=== PATIENT | female | born 1945 | race Caucasian/White ===

== ENCOUNTER 2016-09-20 10:10 | Emergency (ER) | payer MEDICARE, BC ==
[~2016-09-20] VITALS: Ht 160 cm; Wt 65.9 kg
[~2016-09-20 10:10] MED LIST: ACYCLOVIR200 MG PO; ANTIDEPRESSANT; BRINTELLIX10; CARAFATE 1GM1 G PO; CARAFATE S1 GM/10 ML PO; CLORAZEPATE; COLACE 100100 MG/CAP PO; COMPLETE SENIOR1 TA1 PO; CYMBALTA; HYDROCODONE BIT1 TA3 PO; INDOMETHACIN PO; KAPIDEX30 MG PO; KEFLEX500 MG PO; KLONOPIN 1MG1 MG PO; LAMICTAL 25MG T25 MG PO; LEVSIN 0.10.125 MG/T PO; MIRALAX PA17 GM/Dose PO; MOBIC15 MG PO; NATURAL E400 IU PO; NEURONTIN300 MG/CAP PO; NEXIUM 40MG40 MG PO; NITROSTAT0.4 MG/TAB SL; NORCO 325 MG-51 TAB; NORCO 325 MG-51 TAB PO; OMNICEF 300MG300 MG PO; PERCOCET 325 MG1 TA2 PO; PREDNISONE20 MG; PRIL40 PO; PRILOSEC 20MG20 MG PO; PROBIOTIC FORMU1 CAP PO; PROBIOTICA100 Milli1 PO; PYRIDIUM200 M1 PO; REGLAN 10MG10 MG/TAB PO; TEGRETOL 2200 MG/TA1 PO; TRANXENE PO; TYLENOL 8 HR PO; ULTRAM 50MG TAB50 MG PO; VALTREX 50500 MG/TAB PO; VALTREX1 GM PO; VITAMIN B12100 MCG PO; VITAMIN C500 MG PO; ZOLOFT 100MG100 MG PO; ZOLOFT50 MG PO; ZOVIRAX400 MG PO
[2016-09-20 10:13] VITALS: TEMP 98.4
[2016-09-20] MEDS ORDERED: ULTRAM 50MG TAB50 MG PO (10:43)
[2016-09-20 11:05] LABS: BASO % 0.4 % (0.0-2.0); EOS # 0.1 (0.0-0.7); EOS % 1.6 % (0-4.0); GRAN # 3.7 (1.4-6.5); GRAN % 54.9 % (42.2-75.2); HEMATOCRIT 41.3 % (37.0-47.0); HEMOGLOBIN 14.2 g/dl (12.5-16.0); LYMPH # 2.5 (1.2-3.4); LYMPH % 36.2 % (20.0-51.0); MEAN CELL VOLUME 92 fl (80.0-100.0); MEAN CORPUSCULAR HEMOGLOBIN 32 pg (27.0-31.0); MEAN CORPUSCULAR HGB CONC 34 g/dl (33.0-37.0); MEAN PLATELET VOLUME 8.9 fl (7.4-10.4); MONO # 0.5 (0.1-0.6); MONO % 6.6 % (1.7-9.3); PLATELET COUNT 292 K/mm3 (130-400); RED BLOOD COUNT 4.49 M/mm3 (4.10-5.30); REDCELL DISTRIBUTION WIDTH-CV 12.1 % (11.5-14.5); WHITE BLOOD COUNT 6.8 K/mm3 (4.8-10.8)
[2016-09-20 11:23] LABS: ADJUSTED CALCIUM 8.9 mg/dL (8.4-10.2); ALANINE AMINOTRANSFERASE 50 U/L (9-52); ALBUMIN 4.5 gm/dL (3.5-5.0); ALKALINE PHOSPHATASE 85 U/L (50-136); ANION GAP 13 mmol/L (7-16); BILIRUBIN,TOTAL 0.8 mg/dL (0.0-1.0); BLOOD UREA NITROGEN 13 mg/dL (7-17); CALCIUM 9.3 mg/dL (8.4-10.2); CARBON DIOXIDE 23 mmol/L (22-30); CHLORIDE 104 mmol/L (98-107); CREATININE, serum 0.63 mg/dL (0.52-1.25); GLUCOSE 87 mg/dL (74-106); LIPASE 212 U/L (23-300); POTASSIUM 3.9 mmol/L (3.4-5.0); SODIUM 141 mmol/L (137-145); TOTAL PROTEIN 7.5 gm/dL (6.4-8.2)
[2016-09-20 11:25] LABS: C-REACTIVE PROTEIN < 0.5 mg/dL (0.0-0.9)
[2016-09-20 12:18] VITALS: BP 132/80; PULSE 80
== END 2016-09-20 12:19 | disposition home or self-care (01) ==
LOC: COL.ER 10:10
PROVIDERS: Emergency Medicine
DX: R10.84 Generalized abdominal pain (principal)
CPT/HCPCS: J1170; J1885

== ENCOUNTER → 2017-01-02 | Outpatient (CLI) | payer MEDICARE, BC | LOC: MC.RAD 11:27 | DX: Z12.31 Encounter for screening mammogram for malignant neoplasm of breast (principal) ==

== ENCOUNTER → 2017-07-15 | Outpatient (CLI) | payer MEDICARE, BC | LOC: BHSO 14:34 | DX: F33.1 Major depressive disorder, recurrent, moderate (principal) ==

== ENCOUNTER → 2017-09-04 | Outpatient (CLI) | payer MEDICARE, BC | LOC: BHSO 14:38 | DX: F33.1 Major depressive disorder, recurrent, moderate (principal) | CPT/HCPCS: G0463 ==

== ENCOUNTER 2017-10-01 15:33 | Emergency (ER) | payer MEDICARE, BC ==
[~2017-10-01] VITALS: Ht 160 cm; Wt 68.2 kg
[2017-10-01 15:38] VITALS: TEMP 98.8
[2017-10-01] MEDS ORDERED: CYMBALTA 30MG30 MG PO (16:17)
[2017-10-01] MEDS ORDERED: NEURONTIN100 MG/CAP PO (16:18)
[2017-10-01 16:28] LABS: BASO # 0.1 (0.0-0.2); BASO % 0.7 % (0.0-2.0); EOS # 0.1 (0.0-0.7); EOS % 1.5 % (0-4.0); GRAN # 4.8 (1.4-6.5); HEMATOCRIT 44.3 % (37.0-47.0); HEMOGLOBIN 15.1 g/dl (12.5-16.0); LYMPH # 3.1 (1.2-3.4); LYMPH % 35.3 % (20.0-51.0); MEAN CELL VOLUME 96 fl (80.0-100.0); MEAN CORPUSCULAR HEMOGLOBIN 33 pg (27.0-31.0); MEAN CORPUSCULAR HGB CONC 34 g/dl (33.0-37.0); MEAN PLATELET VOLUME 8.5 fl (7.4-10.4); MONO # 0.6 (0.1-0.6); MONO % 7.2 % (1.7-9.3); PLATELET COUNT 348 K/mm3 (130-400); RED BLOOD COUNT 4.64 M/mm3 (4.10-5.30); REDCELL DISTRIBUTION WIDTH-CV 12.9 % (11.5-14.5)
[2017-10-01 16:35] LABS: ALANINE AMINOTRANSFERASE 46 U/L (9-52); ALKALINE PHOSPHATASE 81 U/L (50-136); ANION GAP 11 mmol/L (7-16); AST,SGOT 31 U/L (15-37); BILIRUBIN,TOTAL 0.4 mg/dL (0.0-1.0); BLOOD UREA NITROGEN 9 mg/dL (7-17); CALCIUM 9.8 mg/dL (8.4-10.2); CARBON DIOXIDE 26 mmol/L (22-30); CHLORIDE 101 mmol/L (98-107); CREATININE, serum 0.64 mg/dL (0.52-1.25); GLUCOSE 91 mg/dL (74-106); POTASSIUM 4.1 mmol/L (3.4-5.0); SODIUM 138 mmol/L (137-145); TOTAL PROTEIN 7.9 gm/dL (6.4-8.2)
[2017-10-01 16:36] LABS: ACETAMINOPHEN < 10 ug/mL (10-30); ALCOHOL(ethanol),MEDICAL < 10 mg/dL; SALICYLATE < 1.0 mg/dL
[2017-10-01 16:41] LABS: COLLECTION METHOD CLEAN CATCH
[2017-10-01 16:49] LABS: PH 7 (5-8); SQUAMOUS EPITHELIAL None Seen /hpf; URINE APPEARANCE Clear; URINE BACTERIA None Seen /hpf; URINE BILIRUBIN Negative (NEGATIVE); URINE BLOOD Negative (NEGATIVE); URINE COLOR Straw; URINE GLUCOSE Negative (NEGATIVE); URINE KETONE Negative (NEGATIVE); URINE LEUKOCYTE ESTERASE Negative (NEGATIVE); URINE NITRATE Negative (NEGATIVE); URINE PROTEIN(semi-quant) Negative (NEGATIVE); URINE RBC None Seen /hpf; URINE UROBILINOGEN Negative (NEGATIVE)
[2017-10-01 16:58] LABS: TRICYCLIC ANTIDEPRESS URINE NEGATIVE
[2017-10-01 23:50] VITALS: BP 105/68; PULSE 72
== END 2017-10-01 23:50 ==
LOC: COL.ER 15:33
PROVIDERS: Emergency Medicine
DX: F32.9 Major depressive disorder, single episode, unspecified (principal); R45.851 Suicidal ideations; K58.9 Irritable bowel syndrome, unspecified

== ENCOUNTER → 2017-10-09 | Outpatient (CLI) | payer MEDICARE, BC ==
[~2017-10-09] MED LIST changes: +CYMBALTA 30MG30 MG PO; +NEURONTIN100 MG/CAP PO
== END ==
LOC: COL.RAD 12:11
DX: R25.1 Tremor, unspecified (principal)

== ENCOUNTER 2017-10-21 12:52 | Outpatient (RCR) | payer MEDICARE, BC ==
[2018-01-18] MEDS ORDERED: AMITIZA24 MCG PO (18:55)
[2018-01-18] MEDS ORDERED: REMERON SOLTAB15 MG PO (18:56)
[2018-01-18] MEDS ORDERED: MYSOLINE 5050 MG/TAB PO (18:56)
== END 2018-01-19 | disposition home or self-care (01) ==
LOC: WSST
DX: R13.10 Dysphagia, unspecified (principal)
CPT/HCPCS: G8996-GN; G8997-GN

== ENCOUNTER 2018-01-18 18:28 | Emergency (ER) | payer MEDICARE, BC ==
[~2018-01-18] VITALS: Ht 160 cm; Wt 68.2 kg
[2018-01-18 18:34] VITALS: TEMP 98.2
[2018-01-18] MEDS ORDERED: AMITIZA24 MCG PO (18:55)
[2018-01-18] MEDS ORDERED: REMERON SOLTAB15 MG PO (18:56)
[2018-01-18] MEDS ORDERED: MYSOLINE 5050 MG/TAB PO (18:56)
[2018-01-18 19:37] LABS: COLLECTION METHOD CLEAN CATCH
[2018-01-18 19:40] LABS: BASO % 0.5 % (0.0-2.0); EOS # 0.1 (0.0-0.7); EOS % 1.6 % (0-4.0); GRAN # 3.8 (1.4-6.5); GRAN % 50.1 % (42.2-75.2); HEMATOCRIT 40.9 % (37.0-47.0); LYMPH % 39.4 % (20.0-51.0); MEAN CELL VOLUME 91 fl (80.0-100.0); MEAN CORPUSCULAR HEMOGLOBIN 31 pg (27.0-31.0); MEAN CORPUSCULAR HGB CONC 34 g/dl (33.0-37.0); MEAN PLATELET VOLUME 8.7 fl (7.4-10.4); MONO # 0.6 (0.1-0.6); PLATELET COUNT 307 K/mm3 (130-400); RED BLOOD COUNT 4.48 M/mm3 (4.10-5.30); REDCELL DISTRIBUTION WIDTH-CV 12.3 % (11.5-14.5)
[2018-01-18 19:46] LABS: MUCOUS Present /lpf; PH 5 (5-8); SQUAMOUS EPITHELIAL 0-2 /hpf; URINE APPEARANCE Clear; URINE BACTERIA None Seen /hpf; URINE BILIRUBIN Negative (NEGATIVE); URINE BLOOD 1+ (NEGATIVE); URINE COLOR Yellow; URINE GLUCOSE Negative (NEGATIVE); URINE KETONE Negative (NEGATIVE); URINE LEUKOCYTE ESTERASE Negative (NEGATIVE); URINE NITRATE Negative (NEGATIVE); URINE PROTEIN(semi-quant) Negative (NEGATIVE); URINE RBC 0-2 /hpf; URINE UROBILINOGEN Negative (NEGATIVE)
[2018-01-18 19:52] LABS: BLOOD UREA NITROGEN 11 mg/dL (7-17)
[2018-01-18 19:54] LABS: ALANINE AMINOTRANSFERASE 37 U/L (9-52); ALBUMIN 4.1 gm/dL (3.5-5.0); ALKALINE PHOSPHATASE 77 U/L (50-136); ANION GAP 12 mmol/L (7-16); AST,SGOT 27 U/L (15-37); BILIRUBIN,TOTAL 0.3 mg/dL (0.0-1.0); CALCIUM 8.9 mg/dL (8.4-10.2); CARBON DIOXIDE 20 mmol/L (22-30); CHLORIDE 107 mmol/L (98-107); CREATININE, serum 0.57 mg/dL (0.52-1.25); GLUCOSE 80 mg/dL (74-106); LIPASE 263 U/L (23-300); POTASSIUM 3.8 mmol/L (3.4-5.0); SODIUM 139 mmol/L (137-145); TOTAL PROTEIN 7.3 gm/dL (6.4-8.2)
[2018-01-18 19:55] LABS: C-REACTIVE PROTEIN < 0.5 mg/dL (0.0-0.9)
[2018-01-18 21:59] VITALS: BP 137/66; PULSE 69
== END 2018-01-18 22:01 | disposition home or self-care (01) ==
LOC: COL.ER 18:28
PROVIDERS: Emergency Medicine
DX: R19.7 Diarrhea, unspecified (principal); R10.9 Unspecified abdominal pain; F41.9 Anxiety disorder, unspecified; F32.9 Major depressive disorder, single episode, unspecified; K58.9 Irritable bowel syndrome, unspecified; Z90.49 Acquired absence of other specified parts of digestive tract; Z98.890 Other specified postprocedural states
CPT/HCPCS: J7030

== ENCOUNTER 2018-01-23 12:57 | Day surgery (SDC) | payer MEDICARE, BC ==
[~2018-01-23] VITALS: Ht 160 cm; Wt 70.0 kg
[~2018-01-23 12:57] MED LIST changes: +AMITIZA24 MCG PO; +MYSOLINE 5050 MG/TAB PO; +REMERON SOLTAB15 MG PO
[2018-01-23 13:13] VITALS: BP 124/70; PULSE 69; TEMP 97.7
[2018-01-23] MEDS ORDERED: BENEFIBER PO (13:18)
[2018-01-23 14:25] VITALS: BP 124/63; PULSE 72; TEMP 97.6
[2018-01-23 14:40] VITALS: BP 106/58; PULSE 68
[2018-01-23 14:55] VITALS: BP 114/67; PULSE 61
[2018-01-23 15:10] VITALS: BP 122/66; PULSE 61
== END 2018-01-23 15:30 | disposition home or self-care (01) ==
LOC: SDCO 12:57
DX: R10.13 Epigastric pain (principal); R19.4 Change in bowel habit; F41.9 Anxiety disorder, unspecified; M15.9 Polyosteoarthritis, unspecified; K59.00 Constipation, unspecified; K58.9 Irritable bowel syndrome, unspecified; K63.89 Other specified diseases of intestine; R19.7 Diarrhea, unspecified; Z88.5 Allergy status to narcotic agent; Z88.8 Allergy status to other drugs, medicaments and biological substances; Z90.49 Acquired absence of other specified parts of digestive tract; Z87.11 Personal history of peptic ulcer disease
CPT/HCPCS: OP; J2250; J2405; J3010; J7030

== ENCOUNTER → 2018-01-24 | Outpatient (CLI) | payer MEDICARE, BC ==
[~2018-01-24] MED LIST changes: +BENEFIBER PO
== END ==
LOC: COL.RAD 16:06
DX: Z01.812 Encounter for preprocedural laboratory examination (principal); N85.8 Other specified noninflammatory disorders of uterus; K58.2 Mixed irritable bowel syndrome; Z90.49 Acquired absence of other specified parts of digestive tract
CPT/HCPCS: Q9967

== ENCOUNTER → 2018-02-11 | Outpatient (CLI) | payer MEDICARE, BC | LOC: MC.RAD 11:02 | DX: Z12.31 Encounter for screening mammogram for malignant neoplasm of breast (principal) ==

== ENCOUNTER 2018-08-31 14:01 | Emergency (ER) | payer MEDICARE, BC ==
[~2018-08-31] VITALS: Ht 160 cm; Wt 71.4 kg
[2018-08-31 14:09] VITALS: TEMP 98
[2018-08-31 14:58] LABS: BASO # 0.1 (0.0-0.2); BASO % 0.7 % (0.0-2.0); EOS # 0.2 (0.0-0.7); EOS % 2.3 % (0-4.0); GRAN # 3.9 (1.4-6.5); GRAN % 51.5 % (42.2-75.2); HEMATOCRIT 40.1 % (37.0-47.0); HEMOGLOBIN 13.6 g/dl (12.5-16.0); LYMPH # 2.8 (1.2-3.4); LYMPH % 37.9 % (20.0-51.0); MEAN CELL VOLUME 93 fl (80.0-100.0); MEAN CORPUSCULAR HEMOGLOBIN 32 pg (27.0-31.0); MEAN CORPUSCULAR HGB CONC 34 g/dl (33.0-37.0); MEAN PLATELET VOLUME 8.8 fl (7.4-10.4); MONO # 0.5 (0.1-0.6); MONO % 7.2 % (1.7-9.3); PLATELET COUNT 286 K/mm3 (130-400); RED BLOOD COUNT 4.31 M/mm3 (4.10-5.30); REDCELL DISTRIBUTION WIDTH-CV 12.8 % (11.5-14.5)
[2018-08-31] MEDS ORDERED: AMITIZA 8MCG8 MCG PO ×2 (15:01→15:02)
[2018-08-31 15:16] LABS: ALANINE AMINOTRANSFERASE 34 U/L (9-52); ALKALINE PHOSPHATASE 97 U/L (50-136); ANION GAP 5 mmol/L (7-16); AST,SGOT 27 U/L (15-37); BILIRUBIN,TOTAL 0.2 mg/dL (0.0-1.0); BLOOD UREA NITROGEN 13 mg/dL (7-17); CARBON DIOXIDE 24 mmol/L (22-30); CHLORIDE 111 mmol/L (98-107); GLUCOSE 83 mg/dL (74-106); POTASSIUM 3.8 mmol/L (3.4-5.0); SODIUM 140 mmol/L (137-145); TOTAL PROTEIN 6.9 gm/dL (6.4-8.2)
[2018-08-31 15:19] LABS: C-REACTIVE PROTEIN < 0.5 mg/dL (0.0-0.9)
[2018-08-31 15:34] LABS: LIPASE 199 U/L (23-300)
[2018-08-31 16:35] LABS: COLLECTION METHOD CLEAN CATCH
[2018-08-31 16:51] LABS: PH 6 (5-8); SQUAMOUS EPITHELIAL 0-2 /hpf; URINE APPEARANCE Clear; URINE BACTERIA None Seen /hpf; URINE BILIRUBIN Negative (NEGATIVE); URINE BLOOD Negative (NEGATIVE); URINE COLOR Straw; URINE GLUCOSE Negative (NEGATIVE); URINE KETONE Negative (NEGATIVE); URINE LEUKOCYTE ESTERASE Trace (NEGATIVE); URINE NITRATE Negative (NEGATIVE); URINE PROTEIN(semi-quant) Negative (NEGATIVE); URINE RBC 0-2 /hpf; URINE UROBILINOGEN Negative (NEGATIVE)
[2018-08-31 17:35] VITALS: BP 138/76; PULSE 68
== END 2018-08-31 17:40 | disposition home or self-care (01) ==
LOC: COL.ER 14:01
PROVIDERS: Emergency Medicine
DX: K59.00 Constipation, unspecified (principal); Z90.710 Acquired absence of both cervix and uterus; Z90.49 Acquired absence of other specified parts of digestive tract; Z98.890 Other specified postprocedural states
CPT/HCPCS: J2270; J2405; J7030; Q9967

== ENCOUNTER 2018-12-29 07:26 | Emergency (ER) | payer MEDICARE, BC ==
[~2018-12-29] VITALS: Ht 160 cm; Wt 68.2 kg
[~2018-12-29 07:26] MED LIST changes: +AMITIZA 8MCG8 MCG PO
[2018-12-29 07:45] VITALS: TEMP 97.3
[2018-12-29] MEDS ORDERED: LIDODERM 5% PATC1 EA TP (08:55)
[2018-12-29 09:39] VITALS: BP 145/72; PULSE 63
== END 2018-12-29 09:38 | disposition home or self-care (01) ==
LOC: COL.ER 07:26
DX: M25.561 Pain in right knee (principal); M79.605 Pain in left leg; Z98.890 Other specified postprocedural states; Z88.5 Allergy status to narcotic agent
CPT/HCPCS: J1885

== ENCOUNTER 2019-03-25 12:53 | Outpatient (CLI) | payer MEDICARE, BC ==
[~2019-03-25] VITALS: Ht 160 cm; Wt 70.1 kg
[~2019-03-25 12:53] MED LIST changes: +LIDODERM 5% PATC1 EA TP
[2019-03-25 13:26] VITALS: BP 127/57; PULSE 76; TEMP 98.6
[2019-03-25] MEDS ORDERED: LINZESS72 MCG PO (13:41)
[2019-03-25] MEDS ORDERED: SYNTHROID0.05 MG/TA PO (13:43)
== END 2019-03-25 13:51 | disposition home or self-care (01) ==
LOC: EUO 12:53
DX: M81.0 Age-related osteoporosis without current pathological fracture (principal)
CPT/HCPCS: J0897

== ENCOUNTER → 2019-04-23 | Outpatient (CLI) | payer MEDICARE, BC ==
[~2019-04-23] MED LIST changes: +LINZESS72 MCG PO; +SYNTHROID0.05 MG/TA PO
== END ==
LOC: MC.RAD 09:22
DX: Z12.31 Encounter for screening mammogram for malignant neoplasm of breast (principal)

== ENCOUNTER 2019-04-28 10:15 | Outpatient (RCR) | payer MEDICARE, BC | END 2019-05-21 12:37 | disposition home or self-care (01) | LOC: WSC 10:15 | DX: M17.11 Unilateral primary osteoarthritis, right knee (principal) ==

== ENCOUNTER 2019-12-30 19:05 | Emergency (ER) | payer MEDICARE, BC ==
[~2019-12-30] VITALS: Ht 160 cm; Wt 61.4 kg
[2019-12-30 19:14] VITALS: BP 142/73; PULSE 99; TEMP 98.1
[2019-12-30 20:08] LABS: BASO % 0.2 % (0.0-2.0); GRAN # 7.3 (1.4-6.5); GRAN % 87.3 % (42.2-75.2); HEMATOCRIT 42.1 % (37.0-47.0); HEMOGLOBIN 14.3 g/dl (12.5-16.0); LYMPH # 0.9 (1.2-3.4); LYMPH % 11.1 % (20.0-51.0); MEAN CELL VOLUME 92 fl (80.0-100.0); MEAN CORPUSCULAR HEMOGLOBIN 31 pg (27.0-31.0); MEAN CORPUSCULAR HGB CONC 34 g/dl (33.0-37.0); MEAN PLATELET VOLUME 9.2 fl (7.4-10.4); MONO # 0.1 (0.1-0.6); PLATELET COUNT 318 K/mm3 (130-400); RED BLOOD COUNT 4.57 M/mm3 (4.10-5.30)
[2019-12-30 20:22] LABS: ALANINE AMINOTRANSFERASE 21 U/L (4-34); ALBUMIN 4.6 gm/dL (3.5-5.0); ALKALINE PHOSPHATASE 84 U/L (50-136); ANION GAP 7 mmol/L (7-16); AST,SGOT 25 U/L (15-37); BILIRUBIN,TOTAL 0.4 mg/dL (0.0-1.0); BLOOD UREA NITROGEN 14 mg/dL (7-17); CALCIUM 9.9 mg/dL (8.4-10.2); CARBON DIOXIDE 23 mmol/L (22-30); CHLORIDE 106 mmol/L (98-107); CREATININE, serum 0.61 (0.52-1.25); GLUCOSE 138 mg/dL (74-106); LIPASE 118 U/L (23-300); POTASSIUM 4.1 mmol/L (3.4-5.0); SODIUM 136 mmol/L (137-145); TOTAL PROTEIN 7.7 gm/dL (6.4-8.2)
[2019-12-30 20:32] LABS: C-REACTIVE PROTEIN < 0.5 mg/dL (0.0-0.9); TROPONIN-I < 0.012 ng/mL (0.000-0.035)
== END 2019-12-30 22:45 | disposition home or self-care (01) ==
LOC: COL.ER 19:05
PROVIDERS: Emergency Medicine
DX: F41.9 Anxiety disorder, unspecified (principal); R07.9 Chest pain, unspecified; M54.9 Dorsalgia, unspecified

== ENCOUNTER 2020-03-10 15:58 | Inpatient (IN) | payer MEDICARE, BC ==
[~2020-03-10] VITALS: Ht 160 cm; Wt 60.6 kg
[2020-04-20] VITALS (10 sets, daily range): BP systolic 125–143; BP diastolic 56–73; PULSE 69–77; TEMP 97.6–98.6
[2020-04-20] MEDS ORDERED: PAMELOR50 MG PO (07:21)
[2020-04-20] MEDS ORDERED: RELAFEN750 MG PO (07:22)
[2020-04-20] MEDS ORDERED: ASPIRIN 81M81 MG/TA2 PO (07:23)
[2020-04-20] MEDS ORDERED: TRULANCE3 MG PO (07:23)
--- NOTE | 2020-04-20 12:45 | NUR ---
PATIENT IS BACK IN ROOM 327 POST OP RTK. ORIENTED BUT DROWSY. VSS. DENIES PAIN. PATIENT IS ABLE TO SL MOVE BLE. RLE DRESSING IS CD&I WITH ACEWRAP AND ICE PACK INPLACE. TEDS & SCD'S TO BLE. POSITIVE PEDAL PULSES TO BLE. NO TRUJILLO. IV FLUIDS INFUSING VIA PUMP INTO LEFT FORARM IV. NO C/O N/V. LIQUIDS AT BEDSIDE. HEAD TO TOE ASSESSMENT WNL. NO OTHER NEEDS. CALL LIGHT IN REACH.
--- NOTE | 2020-04-20 14:57 | NUR ---
Aircraft Mechanic [employer] met with patient and patient's , Timo (ph#[phone]) to discuss discharge planning. Patient lives in [place] with Timo and sees Dr. Faye for primary care. Patient obtains medications from [facility] with no difficulties. Patient has a front wheeled walker and no other DME. Patient is normally independent with ADLS. Patient did not have Advance Directives but was interested in designating DPOA-HC. SW assisted patient in completing DPOA-HC form. Patient would like to designate her , Timo and her sister, Angely (ph#[phone]). JILL and RNFrancie provided witness signatures. JILL provided original and copies to patient then placed copy on chart. Patient plans to return home upon discharge. SW will continue to follow.
--- NOTE | 2020-04-20 21:10 | NUR ---
Pt assessment completed and documented. Pt A&Ox3. Complaints of burning pain to RLE. Pt states she would like to wait to take pain medication until scheduled tylenol is due. RLE DIAZ wrap dressing CDI with fresh ice pack in place. IVF infusing to left forearm IV without complications. Pt denies any other needs. Call light within reach
[2020-04-21 03:49] VITALS: BP 130/61; PULSE 68; TEMP 97.8
[2020-04-21 06:17] LABS: HEMOGLOBIN 10.9 g/dl (12.5-16.0)
[2020-04-21 06:26] LABS: HEMATOCRIT 33.8 % (37.0-47.0)
[2020-04-21 07:30] VITALS: BP 132/61; PULSE 86; TEMP 98.3
--- NOTE | 2020-04-21 08:40 | NUR ---
PT UP TO RECLINER AFTER BREAKFAST. DRESSING TO RIGHT KNEE CDI WITH DIAZ WRAP OVER BULKY DRESSING. PAIN CONTROLLED WITH PO PAIN NEDS. PLAN ON DISCHARGE HOME WHEN CRITERIA MET. PT UP TO BR AND VOIDED RETURNED TO RECLINER.
[2020-04-21 12:07] VITALS: BP 147/69; PULSE 83; TEMP 97.5
--- NOTE | 2020-04-21 12:08 | NUR ---
First visit from the edger automatic. No needs right now.
[2020-04-21] MEDS ORDERED: ASPI325T6 PO (12:58)
[2020-04-21] MEDS ORDERED: ROXICODONE 55 MG/TAB PO (12:59)
[2020-04-21] MEDS ORDERED: ULTRAM 50MG TAB50 MG PO (12:59)
[2020-04-21] MEDS ORDERED: SENOKOT S 50 MG1 TAB PO (13:00)
--- NOTE | 2020-04-21 16:05 | NUR ---
PT REVIEWED DISCHARGE INSTRUCTIONS QUESTIONS ANSWERED. PT TAKEN TO EXIT BY WHEEL CHAIR AND STAFF.
== END 2020-04-21 16:06 | disposition home or self-care (01) | DRG 470 ==
LOC: JCC 04-20 06:40
PROVIDERS: ADMIT Orthopaedic Surgery
PROC: 0SRC0J9 Replacement of Right Knee Joint with Synthetic Substitute, Cemented, Open Approach (ICD-10-PCS; principal; 2020-04-20 10:50)
DX: M17.11 Unilateral primary osteoarthritis, right knee (principal); E03.9 Hypothyroidism, unspecified; I08.1 Rheumatic disorders of both mitral and tricuspid valves; F41.9 Anxiety disorder, unspecified; F32.9 Major depressive disorder, single episode, unspecified; G43.909 Migraine, unspecified, not intractable, without status migrainosus; I25.10 Atherosclerotic heart disease of native coronary artery without angina pectoris; E78.5 Hyperlipidemia, unspecified; Z90.710 Acquired absence of both cervix and uterus; Z88.5 Allergy status to narcotic agent
CPT/HCPCS: A9284; C1776; J0690; J1885; J2250; J2704; J3010; J7030; J7120

== ENCOUNTER 2020-04-13 10:43 | Outpatient (RCR) | payer MEDICARE, BC | END 2020-04-18 09:25 | disposition home or self-care (01) | LOC: WSC 10:43 | DX: Z01.812 Encounter for preprocedural laboratory examination (principal) ==

== ENCOUNTER → 2020-06-16 | Outpatient (CLI) | payer MEDICARE, BC ==
[~2020-06-16] MED LIST changes: +ASPI325T6 PO; +ASPIRIN 81M81 MG/TA2 PO; +PAMELOR50 MG PO; +RELAFEN750 MG PO; +ROXICODONE 55 MG/TAB PO; +SENOKOT S 50 MG1 TAB PO; +TRULANCE3 MG PO
== END ==
LOC: MC.RAD 05-31 10:00
DX: Z12.31 Encounter for screening mammogram for malignant neoplasm of breast (principal)

== ENCOUNTER 2020-07-01 11:15 | Outpatient (RCR) | payer MEDICARE, BC | END 2020-07-24 | disposition home or self-care (01) | LOC: WSC | DX: Z01.812 Encounter for preprocedural laboratory examination (principal) ==

== ENCOUNTER 2021-03-20 06:50 | Emergency (ER) | payer MEDICARE, BC ==
[~2021-03-20] VITALS: Ht 160 cm; Wt 67.3 kg
[2021-03-20 07:01] VITALS: TEMP 98.1
[2021-03-20] MEDS ORDERED: CRUTCHES MC (08:10)
[2021-03-20] MEDS ORDERED: MOTRIN 800800 MG/TAB PO (08:10)
[2021-03-20] MEDS ORDERED: PERCOCET 325 MG1 TA2 PO (08:14)
[2021-03-20 08:20] VITALS: BP 133/71; PULSE 78
== END 2021-03-20 08:20 | disposition home or self-care (01) ==
LOC: COL.ER 06:50
DX: M25.561 Pain in right knee (principal); Z98.890 Other specified postprocedural states; X58.XXXA Exposure to other specified factors, initial encounter
CPT/HCPCS: J1885

== ENCOUNTER → 2021-07-05 | Outpatient (CLI) | payer MEDICARE, BC ==
[~2021-07-05] MED LIST changes: +CRUTCHES MC; +MOTRIN 800800 MG/TAB PO
== END ==
LOC: MC.RAD 13:13
DX: Z12.31 Encounter for screening mammogram for malignant neoplasm of breast (principal)

== ENCOUNTER → 2021-12-12 | Outpatient (CLI) | payer MEDICARE, BC | LOC: COL.RAD 07:14 | DX: R42 Dizziness and giddiness (principal) | CPT/HCPCS: A9575 ==

== ENCOUNTER 2022-01-10 13:00 | Outpatient (RCR) | payer MEDICARE, BC | END 2022-01-30 | disposition home or self-care (01) | LOC: WSPT | DX: H81.10 Benign paroxysmal vertigo, unspecified ear (principal); G25.0 Essential tremor ==

== ENCOUNTER 2022-05-25 08:44 | Emergency (ER) | payer MEDICARE, BC ==
[~2022-05-25] VITALS: Ht 160 cm; Wt 68.2 kg
[2022-05-25 08:48] VITALS: TEMP 98.5
[2022-05-25 09:14] LABS: BASO # 0.1 K/mm3 (0.0-0.2); BASO % 0.8 % (0.0-2.0); EOS # 0.2 K/mm3 (0.0-0.7); GRAN # 3.2 K/mm3 (1.4-6.5); HEMATOCRIT 39.1 % (37.0-47.0); HEMOGLOBIN 13.1 g/dl (12.5-16.0); LYMPH # 2.6 K/mm3 (1.2-3.4); LYMPH % 39.2 % (20.0-51.0); MEAN CELL VOLUME 90 fl (80.0-100.0); MEAN CORPUSCULAR HEMOGLOBIN 30 pg (27-31); MEAN CORPUSCULAR HGB CONC 34 g/dl (33.0-37.0); MEAN PLATELET VOLUME 8.6 fl (7.4-10.4); MONO # 0.5 K/mm3 (0.1-0.6); MONO % 7.1 % (1.7-9.3); PLATELET COUNT 348 K/mm3 (130-400); RED BLOOD COUNT 4.34 M/mm3 (4.10-5.30)
[2022-05-25 09:31] LABS: ALANINE AMINOTRANSFERASE 39 U/L (0-55); ALBUMIN 3.8 gm/dL (3.4-4.8); ALKALINE PHOSPHATASE 86 U/L (40-150); ANION GAP 9 mmol/L (7-16); AST,SGOT 25 U/L (5-34); BILIRUBIN,TOTAL 0.3 mg/dL (0.2-1.2); BLOOD UREA NITROGEN 15 mg/dL (10-20); CALCIUM 8.5 mg/dL (8.4-10.2); CARBON DIOXIDE 21 mmol/L (23-31); CHLORIDE 111 mmol/L (98-107); CREATININE, serum 0.73 mg/dL (0.57-1.11); GLUCOSE 92 mg/dL (70-99); POTASSIUM 3.7 mmol/L (3.5-4.5); SODIUM 141 mmol/L (136-145); TOTAL PROTEIN 6.6 gm/dL (6.2-8.1)
[2022-05-25 09:37] LABS: TROPONIN-I < 0.010 ng/mL (0.00-0.033)
[2022-05-25 11:43] VITALS: BP 124/78; PULSE 75
[2022-05-26] MEDS ORDERED: VISTARIL 2525 MG/CAP PO (23:08)
[2022-05-26] MEDS ORDERED: NEURONTIN100 MG/CAP PO (23:09)
[2022-05-26] MEDS ORDERED: WELLBUTRIN XL150 MG PO (23:10)
[2022-05-26] MEDS ORDERED: KLONOPIN 0.5MG0.5 MG PO (23:12)
[2022-05-26] MEDS ORDERED: OMEGA-3 1000 MG1 CAP PO (23:14)
[2022-05-26] MEDS ORDERED: PAMELOR 25MG25 MG PO (23:16)
[2022-05-26] MEDS ORDERED: PRAVACHOL 20MG20 MG PO (23:16)
[2022-05-28] MEDS ORDERED: LOPRESSOR 225 MG/TAB PO (12:33)
[2022-05-28] MEDS ORDERED: ASPIRIN E.C. 8181 MG PO (12:33)
[2022-05-28] MEDS ORDERED: LIPITOR 40MG TA40 MG PO (12:33)
[2022-05-28] MEDS ORDERED: NORVASC 5MG5 MG/TAB PO (12:34)
== END 2022-05-25 11:43 | disposition home or self-care (01) ==
LOC: COL.ER 08:44
PROVIDERS: Personal Emergency Response Attendant
DX: R07.9 Chest pain, unspecified (principal); M54.9 Dorsalgia, unspecified; R59.0 Localized enlarged lymph nodes
CPT/HCPCS: J2405; Q9967

== ENCOUNTER 2022-11-24 16:23 | Emergency (ER) | payer MEDICARE, BC ==
[~2022-11-24] VITALS: Ht 160 cm; Wt 70.0 kg
[~2022-11-24 16:23] MED LIST changes: +ASPIRIN E.C. 8181 MG PO; +KLONOPIN 0.5MG0.5 MG PO; +LIPITOR 40MG TA40 MG PO; +LOPRESSOR 225 MG/TAB PO; +NORVASC 5MG5 MG/TAB PO; +OMEGA-3 1000 MG1 CAP PO; +PAMELOR 25MG25 MG PO; +PRAVACHOL 20MG20 MG PO; +VISTARIL 2525 MG/CAP PO; +WELLBUTRIN XL150 MG PO
[2022-11-24 17:22] LABS: BASO % 0.5 % (0.0-2.0); EOS # 0.1 K/mm3 (0.0-0.7); EOS % 1.6 % (0.0-4.0); GRAN # 4.8 K/mm3 (1.4-6.5); GRAN % 58.2 % (42.2-75.2); HEMATOCRIT 41.4 % (37.0-47.0); HEMOGLOBIN 14.2 g/dl (12.5-16.0); LYMPH # 2.8 K/mm3 (1.2-3.4); LYMPH % 33.4 % (20.0-51.0); MEAN CELL VOLUME 92 fl (80.0-100.0); MEAN CORPUSCULAR HEMOGLOBIN 31 pg (27-31); MEAN CORPUSCULAR HGB CONC 34 g/dl (33.0-37.0); MEAN PLATELET VOLUME 9.5 fl (7.4-10.4); MONO # 0.5 K/mm3 (0.1-0.6); MONO % 5.9 % (1.7-9.3); PLATELET COUNT 337 K/mm3 (130-400); RED BLOOD COUNT 4.52 M/mm3 (4.10-5.30); REDCELL DISTRIBUTION WIDTH-CV 12.7 % (11.5-14.5)
[2022-11-24 17:38] LABS: BILIRUBIN,TOTAL 0.3 mg/dL (0.2-1.2); C-REACTIVE PROTEIN 0.11 mg/dL (0.00-0.50); CALCIUM 9.6 mg/dL (8.4-10.2); CREATININE, serum 0.77 mg/dL (0.57-1.11); POTASSIUM 4.5 mmol/L (3.5-4.5); TOTAL PROTEIN 7.2 gm/dL (6.2-8.1)
[2022-11-24 17:57] LABS: COLLECTION METHOD CLEAN CATCH
[2022-11-24 18:04] LABS: PH 5.5 (5.0-8.5); URINE APPEARANCE Clear (CLEAR/HAZY); URINE BLOOD TRACE-INTACT (NEGATIVE); URINE COLOR Yellow (YELLOW); URINE GLUCOSE Negative (NEGATIVE); URINE KETONE Negative (NEGATIVE); URINE NITRATE Negative (NEGATIVE); URINE PROTEIN(semi-quant) Negative (NEGATIVE); URINE UROBILINOGEN 0.2 E.U/dL (0.2-1.0)
[2022-11-24 18:12] LABS: SQUAMOUS EPITHELIAL None Seen /hpf (0-10); URINE BACTERIA None Seen /hpf (NONE SEEN); URINE RBC 0-2 /hpf (0-2)
[2022-11-24] MEDS ORDERED: ZOFRAN ODT4 MG PO (19:43)
[2022-11-24 20:00] VITALS: BP 140/70; PULSE 66; TEMP 98
== END 2022-11-24 20:00 | disposition home or self-care (01) ==
LOC: COL.ER 16:23
PROVIDERS: Nurse Practitioner
DX: R10.13 Epigastric pain (principal); R10.33 Periumbilical pain; R10.32 Left lower quadrant pain; R11.10 Vomiting, unspecified; Z90.49 Acquired absence of other specified parts of digestive tract
CPT/HCPCS: J2270; J2405; J7030; Q9967

== ENCOUNTER 2023-06-25 09:16 | Emergency (ER) | payer MEDICARE, BC ==
[~2023-06-25] VITALS: Ht 160 cm; Wt 63.6 kg
[~2023-06-25 09:16] MED LIST changes: +BONINE25 MG PO; +ZOFRAN ODT4 MG PO
[2023-06-25 09:17] VITALS: TEMP 98.1
[2023-06-25 10:18] LABS: BASO % 0.7 % (0.0-2.0); EOS # 0.2 K/mm3 (0.0-0.7); EOS % 3.4 % (0.0-4.0); GRAN # 2.9 K/mm3 (1.4-6.5); GRAN % 51.2 % (42.2-75.2); HEMATOCRIT 41.1 % (37.0-47.0); HEMOGLOBIN 13.8 g/dl (12.5-16.0); LYMPH % 34.9 % (20.0-51.0); MEAN CELL VOLUME 93 fl (80.0-100.0); MEAN CORPUSCULAR HEMOGLOBIN 31 pg (27-31); MEAN CORPUSCULAR HGB CONC 34 g/dl (33.0-37.0); MEAN PLATELET VOLUME 9.5 fl (7.4-10.4); MONO # 0.5 K/mm3 (0.1-0.6); MONO % 9.3 % (1.7-9.3); PLATELET COUNT 310 K/mm3 (130-400); RED BLOOD COUNT 4.42 M/mm3 (4.10-5.30)
[2023-06-25 10:34] LABS: ALBUMIN 3.7 gm/dL (3.4-4.8); BILIRUBIN,TOTAL 0.5 mg/dL (0.2-1.2); CALCIUM 9.5 mg/dL (8.4-10.2); CREATININE, serum 0.73 mg/dL (0.57-1.11); POTASSIUM 4.1 mmol/L (3.5-4.5); TOTAL PROTEIN 6.4 gm/dL (6.2-8.1)
[2023-06-25 10:42] LABS: TROPONIN-I 0.011 ng/mL (0.00-0.033)
[2023-06-25 11:05] LABS: COLLECTION METHOD CLEAN CATCH
[2023-06-25 11:22] LABS: SQUAMOUS EPITHELIAL 0-2 /hpf (0-10); URINE APPEARANCE Clear (CLEAR/HAZY); URINE BLOOD Negative (NEGATIVE); URINE COLOR Yellow (YELLOW); URINE GLUCOSE Negative (NEGATIVE); URINE KETONE Negative (NEGATIVE); URINE NITRATE Negative (NEGATIVE); URINE PROTEIN(semi-quant) Negative (NEGATIVE); URINE RBC None Seen /hpf (0-2); URINE UROBILINOGEN 0.2 E.U/dL (0.2-1.0)
[2023-06-25 13:17] VITALS: BP 130/70; PULSE 61
== END 2023-06-25 13:20 | disposition home or self-care (01) ==
LOC: COL.ER 09:16
PROVIDERS: Emergency Medicine
DX: R42 Dizziness and giddiness (principal); I44.0 Atrioventricular block, first degree
CPT/HCPCS: J7030

== ENCOUNTER → 2023-07-30 | Outpatient (CLI) | payer MEDICARE, BC | LOC: CANSCHCLI → MC.RAD 11:06 | DX: Z12.31 Encounter for screening mammogram for malignant neoplasm of breast (principal) ==

== ENCOUNTER 2023-09-14 21:50 | Emergency (ER) | payer MEDICARE, BC ==
[~2023-09-14] VITALS: Ht 160 cm; Wt 63.6 kg
[2023-09-14 21:58] VITALS: BP 120/85; PULSE 80; TEMP 97.8
[2023-09-14] MEDS ORDERED: PROSCAR 5MG5 MG PO (22:12)
[2023-09-14] MEDS ORDERED: AMOXICILLIN 8751 TAB PO (22:13)
[2023-09-14] MEDS ORDERED: EFFEXOR 75M75 MG/TAB PO (22:13)
[2023-09-14] MEDS ORDERED: LYRICA 25MG CAP25 MG PO (22:16)
[2023-09-14] MEDS ORDERED: Home Cyclobenzaprine 10 MG #2 TABS/PACK PO ONE (23:00)
[2023-09-14] MEDS ORDERED: FLEXERIL 1010 MG/TAB PO (23:01)
== END 2023-09-14 23:26 | disposition home or self-care (01) ==
LOC: COL.ER 21:50
DX: S16.1XXA Strain of muscle, fascia and tendon at neck level, initial encounter (principal); S80.01XA Contusion of right knee, initial encounter; S40.011A Contusion of right shoulder, initial encounter; R11.0 Nausea; W01.0XXA Fall on same level from slipping, tripping and stumbling without subsequent striking against object, initial encounter

== ENCOUNTER 2023-10-03 15:27 | Outpatient (CLI) | payer MEDICARE, BC ==
[~2023-10-03] VITALS: Ht 160 cm; Wt 66.1 kg
[2023-10-03 15:11] VITALS: BP 117/66; PULSE 64; TEMP 64
[~2023-10-03 15:27] MED LIST changes: +AMOXICILLIN 8751 TAB PO; +CALCIUM 600MG+D1 TAB PO; +COMPLETE MULTI1 TAB PO; +EFFEXOR 75M75 MG/TAB PO; +EFFEXOR XR75 MG/CAP PO; +FLEXERIL 1010 MG/TAB PO; +LYRICA 25MG CAP25 MG PO; +NATURAL MAGNES200 MG PO; +PROLIA60 MG/ML SQ; +PROSCAR 5MG5 MG PO; +TEMOVATE50TS TOP
--- NOTE | 2023-10-03 15:38 | NUR ---
Pt tolerated prolia without issue. She states she's had multiple doses previously given at PCP's office, and has never had issues with med. She is escorted out to elevator. Pt free of complaints at discharge.
== END 2023-10-03 15:38 | disposition home or self-care (01) ==
LOC: EUO 15:27
DX: M81.0 Age-related osteoporosis without current pathological fracture (principal)
CPT/HCPCS: J0897

== ENCOUNTER 2024-03-29 08:41 | Emergency (ER) | payer MEDICARE, BC ==
[~2024-03-29] VITALS: Ht 160 cm; Wt 63.6 kg
[2024-03-29 08:50] VITALS: TEMP 97.9
[2024-03-29] MEDS ORDERED: NS 1,000 ML IV ONE (09:00)
[2024-03-29 09:37] LABS: HEMOGLOBIN 11.7 g/dl (12.5-16.0); MEAN CELL VOLUME 92 fl (80.0-100.0); MEAN CORPUSCULAR HEMOGLOBIN 32 pg (27-31); MEAN CORPUSCULAR HGB CONC 34 g/dl (33.0-37.0); MEAN PLATELET VOLUME 8.8 fl (7.4-10.4); PLATELET COUNT 273 K/mm3 (130-400); RED BLOOD COUNT 3.69 M/mm3 (4.10-5.30); REDCELL DISTRIBUTION WIDTH-CV 12.7 % (11.5-14.5)
[2024-03-29 09:41] LABS: HEMATOCRIT 34.1 % (37.0-47.0)
[2024-03-29 09:57] LABS: COLLECTION METHOD CLEAN CATCH
[2024-03-29 10:13] LABS: ALBUMIN 2.8 g/dL (3.4-4.8); BILIRUBIN,TOTAL 0.2 mg/dL (0.2-1.2); CREATININE, serum 0.67 mg/dL (0.57-1.11); MAGNESIUM 1.8 mg/dL (1.6-2.6); POTASSIUM 3.2 mEq/L (3.5-4.5)
[2024-03-29 10:18] LABS: PH 6.5 (5.0-8.5); URINE APPEARANCE CLEAR (CLEAR/HAZY); URINE BLOOD NEGATIVE (NEGATIVE); URINE COLOR YELLOW (YELLOW); URINE GLUCOSE NEGATIVE (NEGATIVE); URINE KETONE NEGATIVE (NEGATIVE); URINE NITRATE NEGATIVE (NEGATIVE); URINE PROTEIN(semi-quant) NEGATIVE (NEGATIVE); URINE UROBILINOGEN 0.2 E.U/dL (0.2-1.0)
[2024-03-29 10:43] LABS: BAND 1 % (0-10); EOSINOPHIL 4 % (0-4); LYMPHOCYTE 35 % (20.0-51.0); NEUTROPHILS 53 % (42.0-75.2); PLATELET ESTIMATE NORMAL (NORMAL)
[2024-03-29] MEDS ORDERED: VANCOCIN H125 MG/CAP PO (11:06)
[2024-03-29 11:40] VITALS: BP 130/69; PULSE 60
--- NOTE | 2024-03-29 12:40 | NUR ---
SW consulted to see patient to provide resources. Patient reported that she lives at home with her disabled who is a . Patient described that due to her not feeling well over past few weeks that it is becoming overwhelming to assist at home. She was provided with [facility] contact information, [facility] information and HH list. Patient instructed to reach out to patient's [facility] care team and their PCP to request assistance at home. No other needs identified. Patient states their daughter lives locally and helps them frequently.
== END 2024-03-29 11:40 | disposition home or self-care (01) ==
LOC: COL.ER 08:41
PROVIDERS: Emergency Medicine
DX: A04.72 Enterocolitis due to Clostridium difficile, not specified as recurrent (principal)
CPT/HCPCS: J7030

== ENCOUNTER 2024-04-15 08:07 | Inpatient (IN) | payer MEDICARE, BC ==
[~2024-04-15] VITALS: Ht 160 cm; Wt 66.5 kg
[~2024-04-15 08:07] MED LIST changes: -EFFEXOR XR75 MG/CAP PO; +EFFEXOR-XR150 MG PO; +VANCOCIN H125 MG/CAP PO
[2024-04-15] MEDS ORDERED: Morphine 4 MG/ML VIAL IV PRN (08:30)
[2024-04-15] MEDS ORDERED: NS 1,000 ML IV ONE ×2 (08:30→11:00)
[2024-04-15] MEDS ORDERED: Ondansetron 4 MG/2 ML VIAL IV ONE (08:30)
[2024-04-15 09:18] LABS: BASO % 0.2 % (0.0-2.0); EOS % 0.1 % (0.0-4.0); GRAN # 15.5 K/mm3 (1.4-6.5); GRAN % 87.9 % (42.2-75.2); HEMATOCRIT 40.7 % (37.0-47.0); HEMOGLOBIN 13.5 g/dl (12.5-16.0); LYMPH # 0.8 K/mm3 (1.2-3.4); LYMPH % 4.7 % (20.0-51.0); MEAN CELL VOLUME 95 fl (80.0-100.0); MEAN CORPUSCULAR HEMOGLOBIN 32 pg (27-31); MEAN CORPUSCULAR HGB CONC 33 g/dl (33.0-37.0); MEAN PLATELET VOLUME 9.7 fl (7.4-10.4); MONO # 1.1 K/mm3 (0.1-0.6); MONO % 6.4 % (1.7-9.3); PLATELET COUNT 300 K/mm3 (130-400); RED BLOOD COUNT 4.29 M/mm3 (4.10-5.30); REDCELL DISTRIBUTION WIDTH-CV 13.2 % (11.5-14.5)
[2024-04-15 09:37] LABS: ALBUMIN 3.8 g/dL (3.4-4.8); BILIRUBIN,TOTAL 0.7 mg/dL (0.2-1.2); C-REACTIVE PROTEIN 5.59 mg/dL (0.00-0.50); CREATININE, serum 0.76 mg/dL (0.57-1.11); POTASSIUM 3.4 mEq/L (3.5-4.5); TOTAL PROTEIN 6.6 g/dl (6.2-8.1)
[2024-04-15] MEDS ORDERED: NS 100 ML IV SCH (09:59)
[2024-04-15] MEDS ORDERED: Iohexol 300 - 100 ML VIAL IV ONE (10:00)
[2024-04-15] MEDS ORDERED: Fidaxomicin 200 MG TAB PO ONE (11:00)
[2024-04-15] MEDS ORDERED: Vancomycin 125 MG CAP PO SCH (11:30)
[2024-04-15] MEDS ORDERED: Acetaminophen 325 MG TAB PO PRN (13:00)
[2024-04-15] MEDS ORDERED: LR 1,000 ML IV SCH (13:15)
[2024-04-15] MEDS ORDERED: *Potassium Replacement Protocol MC SCH (13:15)
[2024-04-15] MEDS ORDERED: Potassium Bicarbonate/Citrate 20 MEQ Effervescent TAB PO SCH (13:15)
[2024-04-15 13:42] VITALS: BP 105/46; PULSE 86; TEMP 100
[2024-04-15] MEDS ORDERED: NORVASC2.5 MG PO (13:42)
[2024-04-15] MEDS ORDERED: LOPRESSOR 225 MG/TAB PO (13:42)
[2024-04-15] MEDS ORDERED: SYNTHROID0.05 MG/TA PO (13:43)
[2024-04-15] MEDS ORDERED: DRAMAMINE LESS25 MG PO (13:43)
[2024-04-15] MEDS ORDERED: MINOXIDIL 2.5 PO (13:44)
[2024-04-15 16:38] VITALS: BP 112/40; PULSE 79; TEMP 98.7
[2024-04-15 17:39] VITALS: BP_SYST 112
[2024-04-15] MEDS ORDERED: Ondansetron 4 MG/2 ML VIAL IV PRN (18:00)
[2024-04-15 18:09] LABS: CLOSTRIDIUM DIFF A/B POS
--- NOTE | 2024-04-15 20:30 | NUR ---
Pt's daughter requested help in room. Pt. was incontinent of stool at this time. Assisted pt. to restroom. Pt. cleansed independently and new clothes were provided. Linens changed. Administered scheduled meds per OCT. Shift assessment complete. No outstanding findings at this time. Pt. denies complaints or request. Call light in reach.
[2024-04-15 20:31] VITALS: BP 99/41; PULSE 83; TEMP 99
[2024-04-15] MEDS ORDERED: clonazePAM 1 MG TAB PO SCH (21:00)
[2024-04-15] MEDS ORDERED: Pregabalin 25 MG CAP PO SCH (21:00)
[2024-04-15 21:05] VITALS: BP_SYST 99
[2024-04-15 23:11] VITALS: BP 101/40; PULSE 83; TEMP 99
[2024-04-16] VITALS (13 sets, daily range): BP systolic 89–135; BP diastolic 39–80; PULSE 65–82; TEMP 97.7–99
--- NOTE | 2024-04-16 03:53 | NUR ---
Pt. had uneventful evening. No complaints or requests through the night. Continues to ambulate independently. VSS. No further episodes of incontinence. Pt. resting in bed w/ eyes closed; respirations even and unlabored.
--- NOTE | 2024-04-16 07:00 | NUR ---
Assessment completed. Contact Plus precautions in place for + C-Diff. Pt reports bowel urgency throughout the night with an episode of incontinence. Pt has IVF infusing and is independent. BSC placed at bedside and patient has brief on. Rate abd discomfort /10. Denies needs at this time.
[2024-04-16 07:12] LABS: ALBUMIN 2.9 g/dL (3.4-4.8); BILIRUBIN,TOTAL 0.4 mg/dL (0.2-1.2); CREATININE, serum 0.73 mg/dL (0.57-1.11); MAGNESIUM 1.7 mg/dL (1.6-2.6); POTASSIUM 3.1 mEq/L (3.5-4.5); TOTAL PROTEIN 5.1 g/dl (6.2-8.1)
[2024-04-16] MEDS ORDERED: Finasteride 5 MG TAB PO SCH (09:00)
[2024-04-16] MEDS ORDERED: *Potassium Replacement Protocol MC SCH (09:15)
[2024-04-16] MEDS ORDERED: Potassium Bicarbonate/Citrate 20 MEQ Effervescent TAB PO SCH (09:15)
[2024-04-16 10:23] LABS: HEMOGLOBIN 11.7 g/dl (12.5-16.0); MEAN CELL VOLUME 94 fl (80.0-100.0); MEAN CORPUSCULAR HEMOGLOBIN 31 pg (27-31); MEAN CORPUSCULAR HGB CONC 33 g/dl (33.0-37.0); MEAN PLATELET VOLUME 9.5 fl (7.4-10.4); PLATELET COUNT 266 K/mm3 (130-400); RED BLOOD COUNT 3.79 M/mm3 (4.10-5.30); REDCELL DISTRIBUTION WIDTH-CV 13.5 % (11.5-14.5)
[2024-04-16 11:01] LABS: HEMATOCRIT 35.6 % (37.0-47.0)
[2024-04-16 11:07] LABS: BAND 2 % (0-10); BASOPHIL 1 % (0-2); HYPOCHROMIA 1+; LYMPHOCYTE 24 % (20.0-51.0); NEUTROPHILS 67 % (42.0-75.2); PLATELET ESTIMATE NORMAL (NORMAL)
--- NOTE | 2024-04-16 11:57 | NUR ---
Pt reports she is not having as much bowel urgency as she was. Denies needs at this time.
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
--- NOTE | 2024-04-16 15:16 | NUR ---
matrix worker met with patient and her sister Lillie, Home P# [phone] and Cell P# [phone], to discuss discharge planning. Patient lives in [place] with her , Timo Schwarz, P# [phone]. PCP is Dr. Faye, Pharmacy is [facility] [address]. No issues affording medications. Insurance is Medicare A and B, BCBS. DPOA-HC is in the EMR and lists Timo as primary and Lillie is secondary. No DME at this time. Patient reports to normally be independent with ADLS and transportation. Patient reported her only concerns about returning home is caring for her whom is a disabled, purple [employer] receipient, , otherwise she wants to return home at time of discharge. JILL discussed contacting the [facility] to get home health and home making services established through [facility] team at the [facility]. Patient reported she has tried to get this set up but determined he did not feel he needed these services. JILL explained she would contact Melissa MELCHOR at the [facility] and see if she could assist with obtaining those services. Patient stated she would appreciate that. JILL explained if patient herself needed home health upon discharge social work would assist with this. Patient understands. JILL left a detailed voicemail with Melissa at the [facility]. matrix worker can follow up tomorrow. Discharge plan: Home
--- NOTE | 2024-04-16 19:21 | NUR ---
PATIENT RESTING IN BED WITH TV OFF WITH NO FAMILY PRESENT WITH NO ACUTE DISTRESS NOTED. PATIENT ON ROOM AIR. LR INFUSING INTO LEFT FOREARM WITH NO COMPLICATIONS NOTED. BEDSIDE SHIFT REPORT COMPLETED WITH RIP. PATIENT DENIES ANY NEEDS AT THIS TIME. BED IN LOW POSITION WITH WHEELS LOCKED WITH RAILS UP X2 AND CALL LIGHT WITHIN REACH.
--- NOTE | 2024-04-16 19:39 | NUR ---
Pt has been independent in her room today without difficulty. Reports overall feeling much better. Reports 8 liquid stools today without having the urgency she had been having. Tolerating clear liquids without nausea. Reported pain level 1/10 throughout day- order rec'd for k-pad, which patient reports has been very helpful. IVF continue to infuse without s/s IV related complications. Contact Plus precautions continue to be in place.
--- NOTE | 2024-04-16 21:05 | NUR ---
PATIENT RESTING IN BED WITH TV OFF WITH NO FAMILY PRESENT WITH NO ACUTE DISTRESS NOTED. PATIENT ON ROOM AIR. LR INFUSING INTO LEFT FOREARM WITH NO COMPLICATIONS NOTED. ASSESSMENT AND MEDICATION ADMINISTRATION COMPLETED AT THIS TIME. PATIENT TOLERATED WELL. PATIENT DENIES ANY NEEDS AT THIS TIME. BED IN LOW POSITION WITH WHEELS LOCKED WITH RAILS UP X3 AND CALL LIGHT WITHIN REACH.
--- NOTE | 2024-04-16 23:40 | NUR ---
PATIENT RESTING IN BED WITH TV OFF WITH NO FAMILY PRESENT WITH NO ACUTE DISTRESS NOTED. MEDICATION ADMINISTRATION COMPLETED AT THIS TIME. PATIENT TOLERATED WELL. PATIENT VOICED CONCERN OF IV SITE. FLUIDS PAUSED. IV FLUSHED AND BLOOD RETURN NOTED. NO EDEMA NOTED. SMALL RED SPOT NOTED UNDER DRESSING BUT PATIENT DENIES ANY PAIN. IVF STARTED BACK. PILLOW GIVEN TO PATIENT TO ELEVATE LEFT ARM.
[2024-04-17] VITALS (7 sets, daily range): BP systolic 115–131; BP diastolic 48–61; PULSE 57–66; TEMP 97.9–98
[2024-04-17 07:36] LABS: BASO % 0.4 % (0.0-2.0); EOS # 0.2 K/mm3 (0.0-0.7); EOS % 2.2 % (0.0-4.0); GRAN % 65.5 % (42.2-75.2); HEMOGLOBIN 12.4 g/dl (12.5-16.0); LYMPH # 2.2 K/mm3 (1.2-3.4); LYMPH % 23.8 % (20.0-51.0); MEAN CELL VOLUME 92 fl (80.0-100.0); MEAN CORPUSCULAR HEMOGLOBIN 31 pg (27-31); MEAN CORPUSCULAR HGB CONC 34 g/dl (33.0-37.0); MEAN PLATELET VOLUME 9.6 fl (7.4-10.4); MONO # 0.7 K/mm3 (0.1-0.6); MONO % 7.6 % (1.7-9.3); PLATELET COUNT 276 K/mm3 (130-400); RED BLOOD COUNT 3.96 M/mm3 (4.10-5.30); REDCELL DISTRIBUTION WIDTH-CV 13.2 % (11.5-14.5)
[2024-04-17 07:43] LABS: HEMATOCRIT 36.5 % (37.0-47.0)
[2024-04-17 07:57] LABS: ALANINE AMINOTRANSFERASE 24 U/L (0-55); ALBUMIN 3.2 g/dL (3.4-4.8); ALKALINE PHOSPHATASE 69 U/L (40-150); ANION GAP 7 mmol/L (7-16); AST,SGOT 17 U/L (5-34); BILIRUBIN,TOTAL 0.3 mg/dL (0.2-1.2); BLOOD UREA NITROGEN < 5 mg/dL (10-20); CALCIUM 8.5 mg/dL (8.4-10.2); CHLORIDE 110 mEq/L (98-107); CREATININE, serum 0.62 mg/dL (0.57-1.11); GLUCOSE 86 mg/dL (70-99); MAGNESIUM 1.8 mg/dL (1.6-2.6); POTASSIUM 3.5 mEq/L (3.5-4.5); SODIUM 138 mEq/L (136-145); TOTAL PROTEIN 5.7 g/dl (6.2-8.1)
--- NOTE | 2024-04-17 08:55 | NUR ---
Assessment completed. Pt resting in bed upon entering room. Reports feeling anxious this morning. Scheduled klonopin administered. IVF infuse to new IV site in RH without s/s complications. Rates pain 1/10 on pain scale- reports the cramping has resolved but now feels an achiness to her upper abdomen, uses the k-pad as needed. Reports stools are less in volume and urgency, 4 stools overnight and 1 stool this morning. Diet advanced to general. Encouraged patient to start with something bland for breakfast, reviewed LUCA diet and patient verbalizes understanding. Contact Plus precatuions in place.
--- NOTE | 2024-04-17 11:58 | NUR ---
Patient reports tolerating breakfast- reports a loose stool approximately 20 minutes after eating but states it wasn't urgent and small in amount. Dr. Alas notified. Will allow patient to eat lunch and see how she tolerates before deciding if she will discharge today. Patient made aware.
[2024-04-17] MEDS ORDERED: VANCOCIN H125 MG/CAP PO (13:16)
--- NOTE | 2024-04-17 15:11 | NUR ---
automobile body worker was contacted by JILL Torres at the [facility], whom expressed she would look into getting patient's some home health and home making services in the home. Discharge plan: home
--- NOTE | 2024-04-17 15:28 | NUR ---
Discharge instructions reviewed with patient- verbalizes understanding. INT to RW d/c'd with cath tip intact. [facility], via w/c, and discharged home with sister. Home medications were not sent with patient- left message on patient's voicemail to call this nurse on her wireless when she arrives to pick them up and a staff member will run them down to her.
== END 2024-04-17 15:31 | disposition home or self-care (01) | DRG 372 ==
LOC: COL.ER 08:07 → MEDICAL 12:57
PROVIDERS: Emergency Medicine; Physician Assistant; ADMIT Internal Medicine
DX: A04.71 Enterocolitis due to Clostridium difficile, recurrent (principal); E87.20 Acidosis, unspecified; M79.7 Fibromyalgia; L65.9 Nonscarring hair loss, unspecified; M81.0 Age-related osteoporosis without current pathological fracture; E03.9 Hypothyroidism, unspecified; F32.A Depression, unspecified; F41.9 Anxiety disorder, unspecified; E78.5 Hyperlipidemia, unspecified; K58.9 Irritable bowel syndrome, unspecified; Z96.651 Presence of right artificial knee joint; I10 Essential (primary) hypertension; E87.6 Hypokalemia; Z88.5 Allergy status to narcotic agent; Z88.8 Allergy status to other drugs, medicaments and biological substances; Z90.710 Acquired absence of both cervix and uterus; Z90.49 Acquired absence of other specified parts of digestive tract; Z79.890 Hormone replacement therapy; Z79.899 Other long term (current) drug therapy; Z23 Encounter for immunization
CPT/HCPCS: J2270; J2405; J7030; J7120; Q9967

== ENCOUNTER 2024-06-21 16:46 | Inpatient (IN) | payer MEDICARE, BC ==
[~2024-06-21] VITALS: Ht 160 cm; Wt 65.8 kg
[~2024-06-21 16:46] MED LIST changes: +DRAMAMINE LESS25 MG PO; +MINOXIDIL 2.5 PO; +NORVASC2.5 MG PO
[2024-06-21] MEDS ORDERED: NS 1,000 ML IV ONE (17:15)
[2024-06-21 17:23] LABS: BASO # 0.1 K/mm3 (0.0-0.2); BASO % 0.6 % (0.0-2.0); EOS # 0.4 K/mm3 (0.0-0.7); EOS % 5.2 % (0.0-4.0); GRAN % 59.2 % (42.2-75.2); HEMATOCRIT 39.5 % (37.0-47.0); HEMOGLOBIN 13.5 g/dl (12.5-16.0); LYMPH # 2.3 K/mm3 (1.2-3.4); LYMPH % 26.7 % (20.0-51.0); MEAN CELL VOLUME 92 fl (80.0-100.0); MEAN CORPUSCULAR HEMOGLOBIN 31 pg (27-31); MEAN CORPUSCULAR HGB CONC 34 g/dl (33.0-37.0); MEAN PLATELET VOLUME 8.9 fl (7.4-10.4); MONO # 0.7 K/mm3 (0.1-0.6); MONO % 7.9 % (1.7-9.3); PLATELET COUNT 312 K/mm3 (130-400); REDCELL DISTRIBUTION WIDTH-CV 12.8 % (11.5-14.5)
[2024-06-21 17:27] LABS: ERYTHROCYTE SEDIMENTATION RATE 23 mm/hr (0-30)
[2024-06-21 17:29] LABS: INR 1.1 (0.8-3.0)
[2024-06-21 17:42] LABS: ALBUMIN 3.6 g/dL (3.4-4.8); BILIRUBIN,TOTAL 0.2 mg/dL (0.2-1.2); C-REACTIVE PROTEIN 0.68 mg/dL (0.00-0.50); CALCIUM 10.1 mg/dL (8.4-10.2); CREATININE, serum 0.74 mg/dL (0.57-1.11); POTASSIUM 3.3 mEq/L (3.5-4.5); TOTAL PROTEIN 6.9 g/dl (6.2-8.1)
[2024-06-21 17:48] LABS: TROPONIN-I 0.02 ng/mL (0.00-0.033)
[2024-06-21 19:19] LABS: COLLECTION METHOD CLEAN CATCH
[2024-06-21 19:24] LABS: URINE APPEARANCE CLEAR (CLEAR/HAZY); URINE BLOOD NEGATIVE (NEGATIVE); URINE COLOR YELLOW (YELLOW); URINE GLUCOSE NEGATIVE (NEGATIVE); URINE KETONE NEGATIVE (NEGATIVE); URINE NITRATE NEGATIVE (NEGATIVE); URINE PROTEIN(semi-quant) NEGATIVE (NEGATIVE); URINE UROBILINOGEN 0.2 E.U/dL (0.2-1.0)
[2024-06-21] MEDS ORDERED: Iohexol 300 - 100 ML VIAL IV ONE (21:17)
[2024-06-21] MEDS ORDERED: NS 60 ML IV ONE (21:19)
[2024-06-21] MEDS ORDERED: Acetaminophen 325 MG TAB PO PRN (23:45)
[2024-06-22] VITALS (13 sets, daily range): BP systolic 106–120; BP diastolic 56–83; PULSE 57–69; TEMP 97.9–98.3
[2024-06-22] MEDS ORDERED: VITAMIN D31000 I1 PO (01:10)
[2024-06-22] MEDS ORDERED: B-121000 MCG PO (01:10)
[2024-06-22] MEDS ORDERED: PROBIOTIC BLEN1 EACH PO (01:11)
[2024-06-22] MEDS ORDERED: VITAMIN C500 MG PO (01:11)
--- NOTE | 2024-06-22 06:32 | NUR ---
Received report from [facility] [employer] nurse at [id number]. Pt arrived on unit at 0029. Pt is alert and oriented x4. Pt is able to answer questions and med. rec., allergies, and pharmacy are done. Pt has no drips or fluids running at this time. Pt is resting in bed with bed in low position, bed alarms on and call light within reach. Will give report to day shift nurse.
[2024-06-22 06:34] LABS: BASO # 0.1 K/mm3 (0.0-0.2); BASO % 0.7 % (0.0-2.0); EOS # 0.4 K/mm3 (0.0-0.7); EOS % 5.7 % (0.0-4.0); GRAN # 3.6 K/mm3 (1.4-6.5); GRAN % 48.6 % (42.2-75.2); HEMOGLOBIN 12.3 g/dl (12.5-16.0); LYMPH # 2.8 K/mm3 (1.2-3.4); LYMPH % 37.8 % (20.0-51.0); MEAN CELL VOLUME 91 fl (80.0-100.0); MEAN CORPUSCULAR HEMOGLOBIN 31 pg (27-31); MEAN CORPUSCULAR HGB CONC 34 g/dl (33.0-37.0); MEAN PLATELET VOLUME 9.3 fl (7.4-10.4); MONO # 0.5 K/mm3 (0.1-0.6); MONO % 6.9 % (1.7-9.3); PLATELET COUNT 303 K/mm3 (130-400); RED BLOOD COUNT 4.02 M/mm3 (4.10-5.30); REDCELL DISTRIBUTION WIDTH-CV 12.9 % (11.5-14.5)
[2024-06-22 06:49] LABS: HEMATOCRIT 36.7 % (37.0-47.0)
[2024-06-22 06:50] LABS: CALCIUM 9.8 mg/dL (8.4-10.2); CREATININE, serum 0.73 mg/dL (0.57-1.11); POTASSIUM 3.7 mEq/L (3.5-4.5)
[2024-06-22 07:36] LABS: CHOLESTEROL RISK RATIO 4.8
[2024-06-22] MEDS ORDERED: Finasteride 5 MG TAB PO SCH (09:00)
[2024-06-22] MEDS ORDERED: Metoprolol Tartrate 25 MG TAB PO SCH (09:00)
[2024-06-22] MEDS ORDERED: amLODIPine 5 MG TAB PO SCH (09:00)
[2024-06-22] MEDS ORDERED: Pregabalin 25 MG CAP PO SCH (09:00)
[2024-06-22] MEDS ORDERED: clonazePAM 1 MG TAB PO SCH (09:00)
[2024-06-22] MEDS ORDERED: Famotidine 20 MG TAB PO SCH (09:00)
--- NOTE | 2024-06-22 09:20 | NUR ---
OILSEED MEAT PRESSER AT BEDSIDE
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
--- NOTE | 2024-06-22 11:20 | NUR ---
PATIENT GOING DOWN TO RADIOLOGY FOR MRI VIA WC. PATIENT NOW OFF FLOOR.
[2024-06-22] MEDS ORDERED: Iohexol 300 - 100 ML VIAL IV ONE (12:01)
[2024-06-22] MEDS ORDERED: NS 100 ML IV SCH (12:02)
--- NOTE | 2024-06-22 12:15 | NUR ---
PATIENT BACK IN ROOM FROM MRI. TELE BACK ON.
--- NOTE | 2024-06-22 12:17 | NUR ---
D: Van Driver stopped by room on rounds. A: Pt was resting and content. 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 Great conversation, pt has no needs right now. Pt appreciated the visit. P: Van Driver informed pt that if she needed anything from the conche loader and unloader area to let her nurse know. Van Driver will follow up as needed.
--- NOTE | 2024-06-22 13:35 | NUR ---
curing room worker met with patient to discuss discharge planning. Patient lives in [place] with her , Timo Antonio# [phone]. PCP is Dr. Faye, Pharmacy is [facility]. No issues affording medications. INsurance is Medicare A and B and BCBS. DPOA-HC is Timo Au. Patient reports no current DME and she is independent with ADLS. Patient reports to be able to transport herself to and from appointments. Patient would like to return home at time of discharge. SW discussed home health services, patient stated she does not have any but she would like her to have some home services through the [place]. SW contacted [facility], and left a voicemail regarding the requesting services for her , Timo cShwarz. Discharge plan: Home
--- NOTE | 2024-06-22 21:11 | NUR ---
Bedside report received from RN Cyndie. Pt awake in bed with no complaints. Call light within reach.
[2024-06-23] VITALS (7 sets, daily range): BP systolic 109–121; BP diastolic 67–70; PULSE 59–70; TEMP 98–98.8
[2024-06-23 06:50] LABS: BASO # 0.1 K/mm3 (0.0-0.2); BASO % 0.7 % (0.0-2.0); EOS # 0.5 K/mm3 (0.0-0.7); EOS % 5.5 % (0.0-4.0); GRAN # 4.7 K/mm3 (1.4-6.5); GRAN % 53.6 % (42.2-75.2); HEMATOCRIT 38.7 % (37.0-47.0); HEMOGLOBIN 13.6 g/dl (12.5-16.0); LYMPH % 33.8 % (20.0-51.0); MEAN CELL VOLUME 90 fl (80.0-100.0); MEAN CORPUSCULAR HEMOGLOBIN 32 pg (27-31); MEAN CORPUSCULAR HGB CONC 35 g/dl (33.0-37.0); MEAN PLATELET VOLUME 9.4 fl (7.4-10.4); MONO # 0.5 K/mm3 (0.1-0.6); MONO % 6.1 % (1.7-9.3); PLATELET COUNT 318 K/mm3 (130-400); RED BLOOD COUNT 4.31 M/mm3 (4.10-5.30); REDCELL DISTRIBUTION WIDTH-CV 12.7 % (11.5-14.5)
[2024-06-23 07:04] LABS: CALCIUM 10.1 mg/dL (8.4-10.2); CREATININE, serum 0.76 mg/dL (0.57-1.11); POTASSIUM 3.7 mEq/L (3.5-4.5)
--- NOTE | 2024-06-23 08:00 | NUR ---
PATIENT IS A&O. VSS ON TELE. DENIES C/O REYNOSO, N/V OR DIZZINESS AT THIS TIME. PATIENT IS REQUESTING PRN TYLENOL FOR REYNOSO PREVENTION, GIVEN WITH AM MEDS. PATIENT ALREADY ATE BREAKFAST. TOLERATING AHA DIET. RIGHT AC IV TO INT. EASY SBA. PT/OT CONSULTED. SCD'S CURRENTLY OFF. HEAD TO TOE ASSESSMENT WNL. NO OTHER NEEDS AT THIS TIME. CALL LIGHT IN REACH.
[2024-06-23] MEDS ORDERED: Influenza Virus Vaccine, Hi-Dose Triv '24-25 (65 YR+) 0.5 ML SYRINGE IM SCH (09:00)
--- NOTE | 2024-06-23 10:30 | NUR ---
EYE PATCH GIVEN TO PATIENT FOR COMFORT. PATIENT FEELS LIKE COVERING ONE OF HER EYES HELPS THE DIZZINES AND REYNOSO.
[2024-06-23] MEDS ORDERED: LEXAPRO 5MG5 MG PO (10:41)
--- NOTE | 2024-06-23 13:20 | NUR ---
PATIENT DISCHARGING HOME. GAVE DISCHARGE INSTRUCTIONS AND DISCUSSED F/U APTS. DC'D TELE. DC'D IV SITE AND COVERED WITH [employer]. GAVE FLU SHOT PER PATIENT REQUEST, SEE MAR. PATIENT IS DRESSED, PACKED AND DISCHARGED TO PERSONAL VEHICLE WHERE IS WAITING. PATIENT DISCHARGED.
== END 2024-06-23 13:20 | disposition home or self-care (01) | DRG 103 ==
LOC: COL.ER 16:46 → SURG 23:42
PROVIDERS: Emergency Medicine; Physician Assistant; ADMIT Internal Medicine
DX: G43.909 Migraine, unspecified, not intractable, without status migrainosus (principal); G70.9 Myoneural disorder, unspecified; F41.9 Anxiety disorder, unspecified; H53.2 Diplopia; F32.A Depression, unspecified; M79.7 Fibromyalgia; I10 Essential (primary) hypertension; L65.9 Nonscarring hair loss, unspecified; E03.9 Hypothyroidism, unspecified; E78.5 Hyperlipidemia, unspecified; K58.9 Irritable bowel syndrome, unspecified; M81.0 Age-related osteoporosis without current pathological fracture; Z88.5 Allergy status to narcotic agent; Z88.8 Allergy status to other drugs, medicaments and biological substances; Z79.890 Hormone replacement therapy
CPT/HCPCS: J7030; Q3014; Q9967